=== PATIENT | female | born 1980 | race Caucasian/White ===

== ENCOUNTER 2017-10-11 19:13 | Emergency (ER) | END 2017-10-11 22:25 | disposition home or self-care (01) ==

== ENCOUNTER 2018-03-22 09:12 | Emergency (ER) | payer MEDICAID ==
[~2018-03-22] VITALS: Wt 70.9 kg
[~2018-03-22 09:12] MED LIST: ACET1TAB40 PO; ACET500C5 PO; IBUP-1542 PO; ONDA4TAB14 PO; PRILOSEC
[2018-03-22 09:15] VITALS: BP 115/73; PULSE 78; RESP 17
[2018-03-22] MEDS ORDERED: D-ME118S24 PO (10:20)
[2018-03-22] MEDS ORDERED: AZIT250T PO (10:20)
--- NOTE | 2018-03-22 18:25 | ERD ---
ER Documentation Chief Complaint Chief Complaint COUGH, CONGESTION, THROAT PAIN HPI 37-year-old male presents with cough, congestion, sore throat times 2 days. She also has a history of subjective fever. She has tried TheraFlu cogv-rsq-ldrvldv, NyQuil, Tylenol, Advil without relief. Cough is noted to be nonproductive. No other complaints. ROS All systems reviewed and are negative except as per history of present illness. Medications Home Meds Active Scripts D-Methorphan Hb/P-Epd HCl/Bpm (Uxnvxxinbc-Deyttjojhpn-Uz Syr) 118 Ml Syrup, 5 ML PO Q4H PRN for COUGH, #1 BOTTLE Prov:DEEPABERENICE 03/22/18 Azithromycin* (Zithromax*) 250 Mg Tablet, 250 MG PO .ZPACK DIRECTED for bacterial URI, #6 TAB TAKE 500 MG (2 TABS) THE FIRST DAY THEN 250 MG (1 TAB) DAYS 2-5 Prov:BERENICE ARENAS DO 03/22/18 Ondansetron (Ondansetron Odt) 4 Mg Tab.rapdis, 4 MG PO Q6H PRN for NAUSEA AND/OR VOMITING, #10 TAB Prov:ALAINA ROQUE PA-C 10/11/17 Acetaminophen* (Tylophen*) 500 Mg Capsule, 1 CAP PO Q6H PRN for PAIN AND OR ELEVATED TEMP, #20 CAP Prov:ALAINA ROQUE PA-C 10/11/17 Ibuprofen* (Motrin*) 600 Mg Tab, 600 MG PO Q6H PRN for PAIN AND OR ELEVATED TEMP, #20 Prov:PLACIDO MCCORD MD 07/31/14 Acetaminophen-Codeine* (Acetaminophen-Cod #3*) 300-30 Mg Tab, 1 TAB PO Q4H PRN for PAIN, #14 TAB Prov:PLACIDO MCCORD MD 07/31/14 Reported Medications [Prilosec] No Conflict Check 07/29/10 Allergies Allergies: Coded Allergies: No Known Drug Allergies (Verified Allergy, Mild, 03/25/13) No Known Allergy (Verified , 11/17/10) PMhx/Soc Medical and Surgical Hx: pt denies Medical Hx, pt denies Surgical Hx History of Surgery: No Anesthesia Reaction: No Hx Neurological Disorder: No Hx Respiratory Disorders: No Hx Cardiac Disorders: No Hx Psychiatric Problems: No Hx Miscellaneous Medical Probl: No Hx Alcohol Use: Yes Hx Substance Use: No Hx Tobacco Use: No Smoking Status: Never smoker Physical Exam Vitals Vital Signs Date Temp Pulse Resp B/P (MAP) Pulse Ox O2 O2 Flow FiO2 Time Delivery Rate 03/22/18 97.6 78 17 115/73 99 09:15 (87) Physical Exam Const: No acute distress Head: Atraumatic Eyes: Normal Conjunctiva ENT: Normal External Ears, bilateral tympanic membrane intact without erythema or bulging noted, nose and Mouth examination normal, no tonsillar swelling or exudate noted Neck: Full range of motion. No meningismus. Resp: Clear to auscultation bilaterally, no wheezing, rales, rhonchi Cardio: Regular rate and rhythm, no murmurs Skin: No petechiae or rashes Ext: No cyanosis, or edema Neur: Awake and alert Psych: Normal Mood and Affect Procedures/MDM Medical Decision Making: Differential diagnosis includes but not limited to upper respiratory infection, pneumonia, sepsis, meningitis. Patient appeared well on physical examination, nontoxic appearing. Lungs were clear to auscultation bilaterally. There is low suspicion for pneumonia, sepsis, meningitis. Patient likely has an upper respiratory infection, likely viral. Patient did have concern about bacterial infection. Advised patient of her symptoms are likely due to viral infection. Advised patient that if she has symptoms that last for over 7-10 days or if she has symptoms that initially improved and worsened and to come back to the ER however she states that she has difficulty coming back and has difficulty foll owing with her primary care physician. Given patient's concern patient given prescription for antibiotics however she is advised not to take the medication unless symptoms worsen or if symptoms last for over 7-10 days. Patient agreed with plan. Patient given prescription for supportive medications. Discussed symptomatic treatment with patient who agrees with plan. Patient advised to follow up with PCP in 1-2 days. Patient advised to return to ED for new or worsening symptoms. Patient stable on discharge from the ED. Disclaimer: Inadvertent spelling and grammatical errors are likely due to EHR/dictation software use and do not reflect on the overall quality of patient care. Also, please note that the electronic time recorded on this note does not necessarily reflect the actual time of the patient encounter. Departure Diagnosis: Primary Impression: Upper respiratory infection Condition: Fair Patient Instructions: Preventing Common Respiratory Infections Referrals: [facility] YOU HAVE RECEIVED A MEDICAL SCREENING EXAM AND THE RESULTS INDICATE THAT YOU DO NOT HAVE A CONDITION THAT REQUIRES URGENT TREATMENT IN THE EMERGENCY DEPARTMENT. FURTHER EVALUATION AND TREATMENT OF YOUR CONDITION CAN WAIT UNTIL YOU ARE SEEN IN YOUR DOCTORS OFFICE WITHIN THE NEXT 1-2 DAYS. IT IS YOUR RESPONSIBILITY TO MAKE AN APPOINTMENT FOR FOLOW-UP CARE. IF YOU HAVE A PRIMARY DOCTOR --you should call your primary doctor and schedule an appointment IF YOU DO NOT HAVE A PRIMARY DOCTOR YOU CAN CALL OUR PHYSICIAN REFERRAL HOTLINE AT IF YOU CAN NOT AFFORD TO SEE A PHYSICIAN YOU CAN CHOSE FROM THE FOLLOWING [facility] [address] [place]. [facility] [address] [facility]. [facility] [address] [facility] [facility] [address] [facility] [facility] [address] [facility]. [facility]. [address] Additional Instructions: Call your primary care doctor TOMORROW for an appointment during the next 1-2 days.See the doctor sooner or return here if your condition worsens before your appointment time. BERENICE ARENAS DO Mar 22, 2018 18:25
== END 2018-03-22 10:48 | disposition home or self-care (01) ==
LOC: FTE 09:12
DX: J06.9 Acute upper respiratory infection, unspecified (principal)
CPT/HCPCS: 99283